=== PATIENT | male | born 1975 | race African-American/Black ===

== ENCOUNTER 2016-05-10 15:47 | Emergency (ER) | payer OTHER ==
[2016-05-10 15:36] LABS: INFLUENZA A NEG (NEG); INFLUENZA B NEG (NEG)
[~2016-05-10 15:47] MED LIST: CLONIDINE PO; DARVOCET-N 1001 TAB PO; LISINOPRIL PO
== END 2016-05-10 16:07 | disposition home or self-care (01) ==
LOC: CED 15:47
PROVIDERS: Emergency Medicine
DX: J02.0 Streptococcal pharyngitis (principal); Z79.899 Other long term (current) drug therapy
CPT/HCPCS: 87804; 87880; 99282